=== PATIENT | male | born 1960 | race African-American/Black ===

== ENCOUNTER 2020-08-07 11:14 | Outpatient (CLI) | payer MEDICARE, OTHER ==
[~2020-08-07 11:14] MED LIST: DEXILANT60 MG ORAL; FISH OIL500 MG PO; MULTIVITAMINS1 EAC2 ORAL; NAPROSYN500 M1 ORAL; PERCOCET1 TAB ORAL; VITAMIN D1000 UNI1 ORAL
[2020-08-07] MEDS ORDERED: OXYCODONE HCL15 M1 ORAL (11:18)
[2020-08-07 11:19] VITALS: BP 119/74
--- NOTE | 2020-08-07 11:35 | General Progress Note ---
Assessment/Plan Assessment/Plan: (1) History of ETOH abuse (2) Abdominal pain (3) Pancreatitis (4) Acid reflux (5) Colon polyps Status: stable Status Narrative Seen with Dr. Giraldo. Assessment/Plan Hx of ETOH use 11 years ago. needs EGD and colonoscopy Subjective ROS Limited/Unobtainable: Yes Allergies: Coded Allergies: No Known Allergies (Unverified , 08/14/15) Objective Last 24 Hour Vital Signs Date Time Temp Pulse Resp B/P (MAP) Pulse Ox O2 Delivery O2 Flow Rate FiO2 08/07/20 11:19 96.0 94 16 119/74 100 General Appearance: no apparent distress EENT: PERRL/EOMI Neck: supple Cardiovascular: normal rate Respiratory/Chest: decreased breath sounds Abdomen: normal bowel sounds, non tender, soft Extremities: non-tender Layo Giraldo MD Aug 07, 2020 11:35
== END 2020-08-07 13:14 | disposition home or self-care (01) ==
LOC: PAN 11:14
DX: R10.9 Unspecified abdominal pain (principal); K85.90 Acute pancreatitis without necrosis or infection, unspecified; K21.9 Gastro-esophageal reflux disease without esophagitis; K63.5 Polyp of colon
CPT/HCPCS: 99212

== ENCOUNTER 2020-08-15 07:34 | Day surgery (SDC) | payer MEDICARE, OTHER ==
[2020-08-15] VITALS (9 sets, daily range): BP systolic 99–120; BP diastolic 58–79
[~2020-08-15] VITALS: Ht 175.3 cm; Wt 78.9 kg
[~2020-08-15 07:34] MED LIST changes: +OXYCODONE HCL15 M1 ORAL
[2020-08-15] MEDS ORDERED: LR 1000ml 1,000 ML IVLG SCH ×2 (08:00→09:30)
[2020-08-15] MEDS ORDERED: fentaNYL 100 mcg/2 mL IV ONE (08:03)
[2020-08-15] MEDS ORDERED: Midazolam 2mg/2ml Inj ONE (08:03)
[2020-08-15] MEDS ORDERED: INSULIN PO (08:25)
[2020-08-15] MEDS ORDERED: LR 1000ml ONE (09:00)
--- NOTE | 2020-08-15 09:01 | Short Stay Surgery H&P ---
History of Present Illness History of Present Illness Chief Complaint see office consult note HPI Tate Hunter is a 60 year old male who was admitted on for Gerd,Colon Screening Patient History Allergies: Coded Allergies: No Known Allergies (Unverified , 08/15/20) Medication History Scheduled Cholecalciferol (Vitamin D3)* (Vitamin D*), 1,000 UNIT ORAL DAILY, (Reported) [place]-3 Fatty Acids (Fish Oil), 500 MG PO DAILY, (Reported) [Insulin], 32 UNITS PO DAILY, (Reported) Scheduled PRN Oxycodone Hcl* (Oxycodone Hcl*), 15 MG ORAL Q8H PRN for For Pain, (Reported) Physical Exam Vital Signs Last Vital Signs Date Time Temp Pulse Resp B/P (MAP) Pulse Ox O2 Delivery O2 Flow Rate FiO2 08/15/20 08:29 97.7 94 18 103/68 98 Room Air Labs Laboratory Tests Test 08/15/20 08:27 POC Whole Blood Glucose 172 MG/DL (74-106) H Plan Attestation Are the patient's medical conditions optimized for surgery? Layo Giraldo MD Aug 15, 2020 09:01
--- NOTE | 2020-08-15 09:01 | Pre-Procedure Note/Attestation ---
Pre-Procedure Note/Attestation Complete Prior to Procedure Planned Procedure: not applicable Procedure Narrative: esophagogastroduodenoscopy and colonoscopy Indications for Procedure Pre-Operative Diagnosis: screening colon, GERD Attestation I attest that I discussed the nature of the procedure; its benefits; risks and complications; and alternatives (and the risks and benefits of such al ternatives), prior to the procedure, with the patient (or the patient's legal statement services representative). I attest that, if there was a reasonable possibility of needing a blood transfusion, the patient (or the patient's legal statement services representative) was given the [facility] standardized written summary, pursuant to the Moody Steen Blood Safety Act ([place] Health and Safety Code # 1645, as amended). I attest that I re-evaluated the patient just prior to the surgery and that there has been no change in the patient's H&P, except as documented below: Layo Giraldo MD Aug 15, 2020 09:01
--- NOTE | 2020-08-15 09:09 | Endoscopy Procedure Note ---
Endoscopy Procedure Note General Indication for Procedure: gerd, screening colon Procedures Performed: EGD, colonoscopy Operative Findings/Diagnosis: gastritis, hemorrhoids Specimen: yes Pt Tolerated Procedure Well: Yes Estimated Blood Loss: none Anesthesia Anesthesiologist: saran Anesthesia: MAC Inserted Devices Implant(s) used?: No Quality Quality of Bowel Preparation: Good Did scope reach the cecum?: Yes Was there any complications?: No GI Core Measures 50 yrs or older w/o bx or poly: No 10yrs. F/U recommended: Yes If not recommended, why?: Above average risk 18 years or older w/prev. colo: Yes <3yrs. since last colonoscopy: No Layo Giraldo MD Aug 15, 2020 09:09
--- NOTE | 2020-08-15 09:25 | Anethesia Preoperative Eval ---
Anesthesia Pre-op PMH/ROS General Date of Evaluation: Aug 15, 2020 Time of Evaluation: 08:55 Anesthesiologist: Rossana ASA Score: ASA 3 Mallampati Score Class I : Soft palate, uvula, fauces, pillars visible Class II: Soft palate, uvula, fauces visible Class III: Soft palate, base of uvula visible Class IV: Only hard plate visible Mallampati Classification: Class II Surgeon: Enzo Diagnosis: Colon CA screening Surgical Procedure: EGD Colonoscopy Anesthesia History: none Social History: current smoker, alcohol use - h/o abuse Family History: no anesthesia problems Allergies: Coded Allergies: No Known Allergies (Unverified , 08/15/20) Medications: see eMAR Patient NPO?: Yes Past Medical History Cardiovascular: Denies: HTN, CAD, CT, valve dz, arrhythmia, other Pulmonary: Denies: asthma, COPD, BIB[place], other Gastrointestinal/Genitourinary: Reports: GERD; Denies: CRI, ESRD, other Neurologic/Psychiatric: Reports: depression/anxiety; Denies: dementia, CVA, TIA, other Endocrine: Reports: DM - on insulin; Denies: hypothyroidism, steroids, other HEENT: Denies: cataract (L), cataract (R), glaucoma, DEERING (L), DEERING (R), other Hematology/Immune: Denies: anemia, DVT, bleeding disorder, other Musculoskeletal/Integumentary: Denies: OA, RA, DJD, DDD, edema, other PMH Narrative: as above PSxH Narrative: see H&P Anesthesia Pre-op Phys. Exam Physician Exam Last Vital Signs Date Time Temp Pulse Resp B/P (MAP) Pulse Ox O2 Delivery O2 Flow Rate FiO2 08/15/20 08:29 97.7 94 18 103/68 98 Room Air Constitutional: NAD Neurologic: CN 2-12 intact Cardiovascular: RRR, no M/R/G Respiratory: CTA Gastrointestinal: S/NT/ND Airway Exam Mallampati Score: Class II MO: full Neck: flexible ROM: full Teeth: intact Dentures: no upper, no lower Anesthesia Pre-op A/P Labs Chemistry Test 08/15/20 08:27 POC Whole Blood Glucose 172 MG/DL (74-106) H Risk Assessment & Plan Assessment: ASA 3 Plan: MAC Status Change Before Surgery: No Everette Tracy MD Aug 15, 2020 09:25
[2020-08-15] MEDS ORDERED: fentaNYL 100 mcg/2 mL IV PRN (09:30)
--- NOTE | 2020-08-15 09:50 | Immediate Post-Op Evaluation ---
Immediate Post-Op Evalulation Immediate Post-Op Evalulation Procedure: EGD Colonoscopy, polypectomy Date of Evaluation: Aug 15, 2020 Time of Evaluation: 09:48 IV Fluids: 400 Blood Products: none Estimated Blood Loss: none Urinary Output: none Blood Pressure Systolic: 112 Blood Pressure Diastolic: 83 Pulse Rate: 86 Respiratory Rate: 20 O2 Sat by Pulse Oximetry: 99 Temperature (Fahrenheit): 97.6 Pain Score (1-10): 1 Nausea: No Vomiting: No Complications none Patient Status: awake, patent, none Hydration Status: adequate Everette Tracy MD Aug 15, 2020 09:50
--- NOTE | 2020-08-15 10:30 | Procedure Note ---
DATE OF PROCEDURE: 08/15/2020 SURGEON: Layo Giraldo MD. PROCEDURE: Upper endoscopy with biopsy and colonoscopy with snare polypectomy and biopsy. ANESTHESIA: Per Dr. Tracy. INSTRUMENT: Olympus adult flexible endoscope and colonoscope. INDICATION: 1. Screening colonoscopy evaluation. 2. Chronic GERD. REASON FOR PROCEDURE: The procedure, risks, benefits, and possible consequences, including hemorrhage, aspiration, perforation and infection, and alternative treatments, were explained to the patient/legal guardian by Dr. Layo Giraldo and the patient/legal guardian understood and accepted these risks. PROCEDURE IN DETAIL: After informed consent was obtained and the patient was adequately sedated, first Olympus upper endoscope was advanced from mouth into the second portion of the duodenum and retroflexion was performed in the stomach. The patient had some retained food material in the stomach making examination of the stomach limited. No obvious mass was seen. Random biopsy from antrum was obtained to rule out H. pylori infection. At this time, the upper endoscope was retrieved and the patient was turned over for colonoscopy. First, rectal examination was performed which was positive for internal hemorrhoids. Then the scope was advanced from rectum into the cecum documented by appendiceal orifice, ileocecal valve, and right upper quadrant palpation. Quality of prep was good. The patient had one diminutive polyp in the cecum, one in the ascending colon removed with the cold biopsy forceps technique. The patient had 7 polyps in the rectosigmoid area mostly probably hyperplastic looking, one removed with a snare, the rest of it cold biopsy forceps technique. Retroflexion of rectum showed evidence of internal hemorrhoids. SUMMARY OF FINDINGS: 1. Limited examination of the stomach given food in the stomach. 2. Gastritis, status post biopsy. 3. Internal hemorrhoids. 4. Seven colonic polyps removed, see above for details. RECOMMENDATIONS: Follow pathology and treat accordingly. Given many polyps, the patient needs repeat colonoscopy no later than 3 years. Layo Giraldo M.D. DR: Kailey JOB#: [id number] CC:
--- NOTE | 2020-08-15 12:40 | 48 Hour Post Anesthesia Eval ---
Post Anesthesia Evaluation Procedure: EGD Colonoscopy, polypectomy Date of Evaluation: Aug 15, 2020 Time of Evaluation: 12:39 Blood Pressure Systolic: 112 0: 58 Pulse Rate: 68 Respiratory Rate: 18 Temperature (Fahrenheit): 97.5 O2 Sat by Pulse Oximetry: 98 Airway: patent Nausea: No Vomiting: No Pain Intensity: 1 Hydration Status: adequate Cardiopulmonary Status: stable Mental Status/LOC: patient returned to baseline Follow-up Care/Observations: n/a Post-Anesthesia Complications: none Follow-up care needed: ready to discharge Everette Tracy MD Aug 15, 2020 12:40
== END 2020-08-15 10:50 | disposition home or self-care (01) ==
LOC: GAS 07:34
DX: Z12.11 Encounter for screening for malignant neoplasm of colon (principal); K21.9 Gastro-esophageal reflux disease without esophagitis; K64.8 Other hemorrhoids; K63.5 Polyp of colon; D12.2 Benign neoplasm of ascending colon; D12.0 Benign neoplasm of cecum; D12.5 Benign neoplasm of sigmoid colon; K29.70 Gastritis, unspecified, without bleeding; E11.9 Type 2 diabetes mellitus without complications; F32.9 Major depressive disorder, single episode, unspecified; F41.9 Anxiety disorder, unspecified; Z79.4 Long term (current) use of insulin; F17.200 Nicotine dependence, unspecified, uncomplicated
CPT/HCPCS: 43239; 45380; 45385; 82962; 94003; J2250; J2704; J3010; J7120; U0002; 94150